=== PATIENT | female | born 1955 | race Caucasian/White ===

== ENCOUNTER 2021-08-16 16:26 | Inpatient (IN) ==
[2021-08-17] MEDS ORDERED: Naloxone 0.4 MG/ML INJ IVP PRN (01:49)
[2021-08-17] MEDS ORDERED: Melatonin 3 MG TABLET PO PRN (01:49)
[2021-08-17] MEDS: cefTRIAXone 1,000 MG in Water for inj. (sterile) 10 ML IVP SCH ×2 (04:04→10:16)
[2021-08-17] MEDS: Azithromycin 500 MG in 0.9 % Sodium Chloride 250 ML IVPB SCH (04:05)
[2021-08-17 04:12] LABS: Hematocrit 39.9 % (35.3-44.9); Mean Corpuscular HGB Conc 32.6 g/dL (31.6-35.5); Mean Corpuscular Hemoglobin 29.1 pg (28.0-33.3); Mean Corpuscular Volume 89.3 fL (83.0-100.0); Mean Platelet Volume 10.5 fL (9.4-12.4); Platelet Count 198 K/mcL (140-400); Red Blood Count 4.47 M/mcL (3.82-4.97); Red Cell Distribution Width 12.7 % (11.5-14.5); White Blood Count 3.3 K/mcL (4.3-11.1)
[2021-08-17] MEDS: Ipratropium 1 PUFF INHALER IH SCH ×4 (04:28→20:26)
[2021-08-17 04:31] LABS: BUN/Creatinine Ratio 20 (6-26); Blood Urea Nitrogen 17 mg/dL (8-23); Calcium 8.8 mg/dL (8.6-10.3); Carbon Dioxide 26 mEq/L (23-29); Chloride 101 mEq/L (98-107); Glucose 116 mg/dL (70-105); Osmolality,Calculated 283 (280-300); Potassium 4.3 mEq/L (3.5-5.1); Sodium 135 mEq/L (136-145); eGFR For African Americans > 60 (> 60); eGFR For Non-African Americans > 60 (> 60)
[2021-08-17] MEDS ORDERED: *HR* Enoxaparin 40 MG/0.4 ML SYRINGE SQ SCH (06:00)
[2021-08-17] MEDS ORDERED: OXAPROZIN 600 MG PO SCH (09:00)
[2021-08-17 09:40] LABS: Albumin 3.8 g/dL (3.5-5.7); Albumin/Globulin Ratio 1.3 (1.1-2.2); Bilirubin,Direct 0.1 mg/dL (0.0-0.2); Bilirubin,Indirect 0.3 mg/dL (0.0-1.0); Bilirubin,Total 0.4 mg/dL (0.3-1.0); Total Protein 6.8 g/dL (6.4-8.9)
[2021-08-17] MEDS: Furosemide 20 MG/2 ML VIAL IVP SCH (10:18)
[2021-08-17] MEDS: Aspirin Enteric Coated 81 MG Tablet PO SCH (10:18)
[2021-08-17] MEDS: PARoxetine 20 MG TABLET PO SCH (10:19)
[2021-08-17] MEDS ORDERED: Remdesivir 200 MG in 0.9 % Sodium Chloride 100 ML IVPB ONE (11:00)
[2021-08-17] MEDS: *HR* Enoxaparin 40 MG/0.4 ML SYRINGE SQ SCH (20:40)
[2021-08-18] MEDS: Ipratropium 1 PUFF INHALER IH SCH ×4 (04:07→20:17)
[2021-08-18] MEDS ORDERED: Ibuprofen 400 MG TABLET PO ONE (05:17)
[2021-08-18] MEDS: Azithromycin 500 MG in 0.9 % Sodium Chloride 250 ML IVPB SCH (05:28)
[2021-08-18 06:29] LABS: Hemoglobin 13.1 g/dL (11.5-15.4); Mean Corpuscular Hemoglobin 28.7 pg (28.0-33.3); Mean Corpuscular Volume 89.7 fL (83.0-100.0); Mean Platelet Volume 10.9 fL (9.4-12.4); Platelet Count 172 K/mcL (140-400); Red Blood Count 4.57 M/mcL (3.82-4.97); Red Cell Distribution Width 12.8 % (11.5-14.5); White Blood Count 4.8 K/mcL (4.3-11.1)
[2021-08-18 06:52] LABS: BUN/Creatinine Ratio 23 (6-26); Blood Urea Nitrogen 22 mg/dL (8-23); Calcium 8.7 mg/dL (8.6-10.3); Carbon Dioxide 24 mEq/L (23-29); Chloride 101 mEq/L (98-107); Glucose 79 mg/dL (70-105); Osmolality,Calculated 284 (280-300); Potassium 3.8 mEq/L (3.5-5.1); Sodium 136 mEq/L (136-145); eGFR For African Americans > 60 (> 60); eGFR For Non-African Americans 60 (> 60)
[2021-08-18 06:55] LABS: Albumin/Globulin Ratio 1.3 (1.1-2.2); Bilirubin,Indirect 0.4 mg/dL (0.0-1.0); Bilirubin,Total 0.4 mg/dL (0.3-1.0)
[2021-08-18] MEDS ORDERED: Ondansetron 4 MG/2 ML VIAL IVP PRN (08:06)
[2021-08-18] MEDS: Furosemide 20 MG/2 ML VIAL IVP SCH (08:14)
[2021-08-18] MEDS: *HR* Enoxaparin 40 MG/0.4 ML SYRINGE SQ SCH ×2 (08:15→20:35)
[2021-08-18] MEDS: PARoxetine 20 MG TABLET PO SCH (08:15)
[2021-08-18] MEDS: Aspirin Enteric Coated 81 MG Tablet PO SCH (08:15)
[2021-08-18] MEDS ORDERED: Diclofenac Sodium (24 HR) 100 MG TABLET PO SCH (09:00)
[2021-08-18] MEDS: Remdesivir 100 MG in 0.9 % Sodium Chloride 100 ML IVPB SCH (12:32)
[2021-08-18] MEDS: Acetaminophen 325 MG TABLET PO PRN ×2 (12:35→23:35)
[2021-08-19] MEDS: Ipratropium 1 PUFF INHALER IH SCH ×3 (04:21→16:42)
[2021-08-19 05:55] LABS: Basophils % 0.3 %; Hematocrit 39.4 % (35.3-44.9); Hemoglobin 12.5 g/dL (11.5-15.4); Immature Granulocytes % 0.3 % (0-4); Lymphocytes # 1.2 K/mcL (0.6-4.6); Lymphocytes % 37.2 %; Mean Corpuscular HGB Conc 31.7 g/dL (31.6-35.5); Mean Corpuscular Hemoglobin 28.7 pg (28.0-33.3); Mean Corpuscular Volume 90.4 fL (83.0-100.0); Mean Platelet Volume 10.7 fL (9.4-12.4); Monocytes # 0.4 K/mcL (0.0-1.3); Monocytes % 11.9 %; Neutrophils # 1.6 K/mcL (1.6-8.9); Platelet Count 187 K/mcL (140-400); Red Blood Count 4.36 M/mcL (3.82-4.97); Red Cell Distribution Width 12.9 % (11.5-14.5); Segmented Neutrophils % 50.3 %; White Blood Count 3.1 K/mcL (4.3-11.1)
[2021-08-19 06:18] LABS: BUN/Creatinine Ratio 28 (6-26); Blood Urea Nitrogen 26 mg/dL (8-23); Calcium 8.6 mg/dL (8.6-10.3); Carbon Dioxide 29 mEq/L (23-29); Chloride 102 mEq/L (98-107); Glucose 97 mg/dL (70-105); Osmolality,Calculated 291 (280-300); Potassium 3.6 mEq/L (3.5-5.1); Sodium 138 mEq/L (136-145); eGFR For African Americans > 60 (> 60); eGFR For Non-African Americans 60 (> 60)
[2021-08-19 06:19] LABS: Albumin 3.7 g/dL (3.5-5.7); Albumin/Globulin Ratio 1.4 (1.1-2.2); Bilirubin,Direct 0.1 mg/dL (0.0-0.2); Bilirubin,Indirect 0.3 mg/dL (0.0-1.0); Bilirubin,Total 0.4 mg/dL (0.3-1.0); Globulin 2.7 g/dL (2.4-3.5); Total Protein 6.4 g/dL (6.4-8.9)
[2021-08-19] MEDS: Furosemide 20 MG/2 ML VIAL IVP SCH (08:25)
[2021-08-19] MEDS: PARoxetine 20 MG TABLET PO SCH (08:25)
[2021-08-19] MEDS: Aspirin Enteric Coated 81 MG Tablet PO SCH (08:25)
[2021-08-19] MEDS: *HR* Enoxaparin 40 MG/0.4 ML SYRINGE SQ SCH (08:25)
[2021-08-19 08:47] LABS: C-Reactive Protein 37 mg/L (Less than 10)
[2021-08-19] MEDS: Remdesivir 100 MG in 0.9 % Sodium Chloride 100 ML IVPB SCH (10:36)
[2021-08-19 16:27] VITALS: BP 120/67; PULSE 55; TEMP 97.9
[2021-08-19 16:43] VITALS: O2SAT 96
== END 2021-08-19 18:02 | disposition home or self-care (01) | DRG 137 ==
LOC: 3ANU → SUATTDRO 08-17 01:49
PROVIDERS: ADMIT Family Medicine; ATTEND Internal Medicine